=== PATIENT | male | born 1970 | race African-American/Black ===

== ENCOUNTER 2016-06-05 20:17 | Emergency (ER) | payer SELFPAY ==
[~2016-06-05] VITALS: Ht 175.3 cm; Wt 90.7 kg
[2016-06-05 20:22] VITALS: BP 194/110
[2016-06-05] MEDS ORDERED: cloNIDine HCL 0.1 MG TAB ONE (20:26)
[2016-06-05] MEDS ORDERED: cloNIDine HCL 0.1 MG TAB PO ONE (20:30)
[2016-06-05 21:37] LABS: Basophils # (auto) 0 uL; Basophils % (auto) 0.3 % (0.0-2.0); Eosinophils # (auto) 0.4 uL; Eosinophils % (auto) 4.8 % (0.0-7.0); Hemoglobin 11.7 g/dL (13.5-17.5); Lymphocytes # (auto) 1.2 uL; Lymphocytes % (auto) 14.3 % (10.0-50.0); Mean Corpuscular Hemoglobin 30.6 pg (28.0-32.0); Mean Corpuscular Hgb Conc. 32.6 g/dL (32.0-36.0); Mean Corpuscular Volume 93.7 fL (80.0-100.0); Mean Platelet Volume 9.1 fL (7.4-10.4); Monocytes # (auto) 0.6 uL; Neutrophils # (auto) 6.1 uL; Neutrophils % (auto) 73.6 % (37.0-80.0); Platelet Count (auto) 189 10^3/uL (140-450); Red Cell Distribution Width 15.1 % (11.6-16.0); White Blood Cell 8.3 10^3/uL (4.4-10.8)
[2016-06-05 21:44] LABS: Albumin 4.1 g/dL (3.4-5.0); BUN/Creatinine Ratio 4.6; Bilirubin, Total 0.4 mg/dL (0.2-1.0); Magnesium 3.5 mg/dL (1.6-2.6)
[2016-06-05 22:03] LABS: Potassium 5.6 mmol/L (3.5-5.1)
[2016-06-05 22:47] LABS: B-Type Natriuretic Peptide 1545.08 pg/mL (0-100)
== END 2016-06-05 21:00 | disposition left against medical advice (07) ==
LOC: ER 20:21
DX: R07.9 Chest pain, unspecified (principal); R06.02 Shortness of breath; R20.0 Anesthesia of skin; Z53.21 Procedure and treatment not carried out due to patient leaving prior to being seen by health care provider
CPT/HCPCS: 36415; 80053; 82962; 83735; 83880; 84484; 85025; 93005